=== PATIENT | female | born 1960 | race Caucasian/White ===

== ENCOUNTER 2016-07-21 09:03 | Outpatient (CLI) | payer BC, OTHER | END 2016-07-21 09:04 | disposition home or self-care (01) | DX: Z00.00 Encounter for general adult medical examination without abnormal findings (principal); E55.9 Vitamin D deficiency, unspecified; Z72.89 Other problems related to lifestyle; Z79.899 Other long term (current) drug therapy ==

== ENCOUNTER 2019-10-22 20:21 | Emergency (ER) | payer BC ==
--- NOTE | 2019-10-22 20:23 | ED Physician Documentation ---
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 denies taking any anticoagulants. She is a full code denies any other complaints. Review of Systems Constitutional: reports: Reviewed and negative Eyes: reports: Reviewed and negative Ears: reports: Reviewed and negative Nose: reports: Reviewed and negative Throat: reports: Reviewed and negative Cardiac: reports: Reviewed and negative Respiratory: reports: Reviewed and negative GI: reports: Nausea, Vomiting, Hematemesis, Bloody / black stool : reports: Reviewed and negative Skin: reports: Reviewed and negative Musculoskeletal: reports: Reviewed and negative Neurologic: reports: Reviewed and negative Psychiatric: reports: Reviewed and negative Endocrine: reports: Reviewed and negative Immunocompromised: reports: Reviewed and negative PD PAST MEDICAL HISTORY - Past Medical History GI: GERD - 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 - Allergies Allergies/Adverse Reactions: Allergies Allergy/AdvReac Type Severity Reaction Status Date / Time No Known Drug Allergies Allergy Verified 10/22/19 20:26 PD ED PE NORMAL - Vitals Vital signs reviewed: Yes - General General: Alert and oriented X 3, No acute distress - HEENT HEENT: PERRL - Neck Neck: Supple, no meningeal sign - Cardiac Cardiac: RRR, No murmur - Respiratory Respiratory: Clear bilaterally - Abdomen Abdomen: Normal bowel sounds, Soft, Non tender, Non distended, Other (ascites and hepatomegaly noted.) - Derm Derm: Warm and dry - Extremities Extremities: No deformity - Neuro Neuro: Alert and oriented X 3 - Psych Psych: Normal mood, Normal affect Results - Vitals Vitals: Vital Signs - 24 hr 10/22/19 10/22/19 10/22/19 20:26 21:00 22:00 Temperature 37.1 C Heart Rate 102 H 92 88 Respiratory 20 18 18 Rate Blood Pressure 98/54 L 101/66 98/65 O2 Saturation 100 99 100 10/22/19 10/22/19 10/23/19 23:06 23:30 00:05 Temperature 98.5 C H 37.0 C 98.9 C H Heart Rate 89 90 85 Respiratory 16 16 16 Rate Blood Pressure 102/61 99/65 100/70 O2 Saturation 10/23/19 00:55 Temperature Heart Rate 88 Respiratory 16 Rate Blood Pressure O2 Saturation 98 Oxygen O2 Source Room air - EKG (time done) 00:00 Rate: Other (no stemi) - Labs Labs: Laboratory Tests 10/22/19 10/22/19 10/22/19 21:10 21:10 21:10 WBC 18.4 H RBC 2.05 L Hgb 6.8 L* Hct 21.3 L MCV 103.9 H MCH 33.2 H MCHC 31.9 L RDW 22.2 H Plt Count 114 L MPV 10.8 Neut # (Auto) 15.2 H Lymph # (Auto) 1.4 L [place] # (Auto) 1.4 H Eos # (Auto) 0.1 Baso # (Auto) 0.0 Absolute Nucleated RBC 0.00 Band Neuts % (Manual) Not Reportable Abnorm Lymph % (Manual) Not Reportable Nucleated RBC % 0.0 Neutrophils # (Manual) Not Reportable Lymphocytes # (Manual) Not Reportable Monocytes # (Manual) Not Reportable Eosinophils # (Manual) Not Reportable Basophils # (Manual) Not Reportable Differential Comment MANUAL=AUTO DIFF Manual Slide Review Indicated WBC Morphology 1+ SMUDGE CELLS Platelet Estimate DECREASED (<130,000) Platelet Morphology NORMAL APPEARANCE RBC Morph Micro Appear 1+ BASO STIPPLING PT INR APTT Sodium 135 Potassium 2.8 L Chloride 103 Carbon Dioxide 24 Anion Gap 8.0 BUN 25 H Creatinine 0.4 Estimated GFR (MDRD) 164 Glucose 103 H Lactic Acid 1.1 Calcium 7.5 L Magnesium 1.3 L Total Bilirubin 0.6 Direct Bilirubin 0.2 AST 26 ALT 29 Alkaline Phosphatase 386 H Ammonia Total Creatine Kinase 14 L Total Protein 4.3 L Albumin 1.9 L Globulin 2.4 Lipase 19 L Urine Color Urine Clarity Urine pH Ur Specific [place] Urine Protein Urine Glucose (UA) Urine Ketones Urine Occult Blood Urine Nitrite Urine Bilirubin Urine Urobilinogen Ur Leukocyte Esterase Ur Microscopic Review Urine Culture Comments Blood Type Blood Type Recheck Antibody Screen Crossmatch IS Only 10/22/19 10/22/19 10/22/19 21:10 21:10 21:43 WBC RBC Hgb Hct MCV MCH MCHC RDW Plt Count MPV Neut # (Auto) Lymph # (Auto) [place] # (Auto) Eos # (Auto) Baso # (Auto) Absolute Nucleated RBC Band Neuts % (Manual) Abnorm Lymph % (Manual) Nucleated RBC % Neutrophils # (Manual) Lymphocytes # (Manual) Monocytes # (Manual) Eosinophils # (Manual) Basophils # (Manual) Differential Comment Manual Slide Review WBC Morphology Platelet Estimate Platelet Morphology RBC Morph Micro Appear PT INR APTT Sodium Potassium Chloride Carbon Dioxide Anion Gap BUN Creatinine Estimated GFR (MDRD) Glucose Lactic Acid Calcium Magnesium Total Bilirubin Direct Bilirubin AST ALT Alkaline Phosphatase Ammonia 27.9 Total Creatine Kinase Total Protein Albumin Globulin Lipase Urine Color Urine Clarity Urine pH Ur Specific [place] Urine Protein Urine Glucose (UA) Urine Ketones Urine Occult Blood Urine Nitrite Urine Bilirubin Urine Urobilinogen Ur Leukocyte Esterase Ur Microscopic Review Urine Culture Comments Blood Type O POSITIVE Blood Type Recheck O POSITIVE Antibody Screen NEGATIVE Crossmatch IS Only See Detail 10/22/19 10/22/19 22:23 22:55 WBC RBC Hgb Hct MCV MCH MCHC RDW Plt Count MPV Neut # (Auto) Lymph # (Auto) [place] # (Auto) Eos # (Auto) Baso # (Auto) Absolute Nucleated RBC Band Neuts % (Manual) Abnorm Lymph % (Manual) Nucleated RBC % Neutrophils # (Manual) Lymphocytes # (Manual) Monocytes # (Manual) Eosinophils # (Manual) Basophils # (Manual) Differential Comment Manual Slide Review WBC Morphology Platelet Estimate Platelet Morphology RBC Morph Micro Appear PT 15.7 H INR 1.4 H APTT 28.3 Sodium Potassium Chloride Carbon Dioxide Anion Gap BUN Creatinine Estimated GFR (MDRD) Glucose Lactic Acid Calcium Magnesium Total Bilirubin Direct Bilirubin AST ALT Alkaline Phosphatase Ammonia Total Creatine Kinase Total Protein Albumin Globulin Lipase Urine Color YELLOW Urine Clarity CLEAR Urine pH 5.5 Ur Specific [place] 1.020 Urine Protein NEGATIVE Urine Glucose (UA) NEGATIVE Urine Ketones NEGATIVE Urine Occult Blood NEGATIVE Urine Nitrite NEGATIVE Urine Bilirubin NEGATIVE Urine Urobilinogen 1 (NORMAL) Ur Leukocyte Esterase NEGATIVE Ur Microscopic Review NOT INDICATED Urine Culture Comments NOT INDICATED Blood Type Blood Type Recheck Antibody Screen Crossmatch IS Only PD MEDICAL DECISION MAKING - ED course Complexity details: considered differential (gi bleed. suspect esophageal variceal bleed given history of pancreatic cancer with metastatic disease to liver. patient not vomiting currently.) - Consults Consults: Discussed case with (dr. ferris hospitalist at [facility] who agreed to accept this patient. ) - Critical Care Time(min): 30 Time Includes: Direct patient care, Review records, Reassess patient, Document care, Coordinate care, Medical consult, Family consult for tx dec Data interpretation: Labs, CXR Procedures included in critical care time: Peripheral IV Procedures excluded from critical care time: EKG Departure - Departure Disposition: 02 Transfer Acute Care Hosp Clinical Impression: GI bleed Qualifiers: GI bleed type/associated pathology: unspecified gastrointestinal hemorrhage type Qualified Code(s): K92.2 - Gastrointestinal hemorrhage, unspecified Condition: Stable Discharge Date/Time: 10/23/19 02:27
[2019-10-22] MEDS ORDERED: PANTOPRAZOLE 40 MG VIAL IVP STA (20:42)
[2019-10-22] MEDS ORDERED: SODIUM CHLORIDE 0.9% 1,000 ML IV STA (20:42)
[2019-10-22] MEDS ORDERED: ONDANSETRON 4 MG/2 ML VIAL IVP STA (20:42)
[2019-10-22] MEDS ORDERED: cefTRIAXone 1 GM VIAL IVP STA (20:43)
[2019-10-22 21:18] LABS: BASOPHILS % (AUTO) 0.2 %; EOSINOPHILS # (AUTO) 0.1 10^3/uL (0.0-0.7); EOSINOPHILS % (AUTO) 0.3 %; LYMPHOCYTES # (AUTO) 1.4 10^3/uL (1.5-3.5); LYMPHOCYTES % (AUTO) 7.5 %; MEAN CORPUSCULAR HEMOGLOBIN 33.2 pg (27.0-31.0); MEAN CORPUSCULAR HGB CONC 31.9 g/dL (32.0-36.0); MEAN CORPUSCULAR VOLUME 103.9 fL (81.0-99.0); MEAN PLATELET VOLUME 10.8 fL (7.9-10.8); MONOCYTES # (AUTO) 1.4 10^3/uL (0.0-1.0); MONOCYTES % (AUTO) 7.8 %; NEUTROPHILS # (AUTO) 15.2 10^3/uL (1.5-6.6); NEUTROPHILS % (AUTO) 83.1 %; PLT - PLATELET COUNT 114 10^3/uL (130-450); RED BLOOD COUNT 2.05 10^6/uL (4.20-5.40); RED CELL DISTRIBUTION WIDTH 22.2 % (12.0-15.0); WHITE BLOOD COUNT 18.4 x10^3/uL (4.8-10.8)
[2019-10-22 21:24] LABS: HGB - HEMOGLOBIN 6.8 g/dL (12.0-16.0)
--- NOTE | 2019-10-22 21:31 | XRAY Report ---
PROCEDURE: Chest 1 View X-Ray INDICATIONS: hematemesis TECHNIQUE: One view of the chest was acquired. COMPARISON: None. FINDINGS: Surgical changes and devices: There is a right Port-A-Cath, the tip of which is projected over the ca voatrial junction. Lungs and pleura: There is left basilar atelectasis. There may be a small right pleural effusion. No pneumothorax. There is mild elevation of the right hemidiaphragm. Mediastinum: Mediastinal contours appear normal. Heart size is normal. Bones and chest wall: No suspicious bony lesions. Overlying soft tissues appear unremarkable. IMPRESSION: 1. Small right pleural effusion. 2. Left basilar atelectasis. Reviewed by: Kayla Medeiros MD on 10/22/2019 9:30 PM PDT Approved by: Kayla Medeiros MD on 10/22/2019 9:30 PM PDT Station ID: [id number]
[2019-10-22 21:33] LABS: ALBUMIN 1.9 g/dL (3.2-5.5); BILIRUBIN,DIRECT 0.2 mg/dL (0.1-0.5); BILIRUBIN,TOTAL 0.6 mg/dL (0.2-1.0); CALCIUM 7.5 mg/dL (8.5-10.3); CREATININE 0.4 mg/dL (0.4-1.0); MAGNESIUM 1.3 mg/dL (1.7-2.8); TOTAL PROTEIN 4.3 g/dL (6.7-8.2)
[2019-10-22 21:58] LABS: DIFFERENTIAL COMMENT MANUAL=AUTO DIFF; PLATELET ESTIMATE, MANUAL DECREASED (<130,000) (NORMAL); PLATELET MORPHOLOGY NORMAL APPEARANCE (NORMAL)
[2019-10-22 22:43] LABS: INR 1.4 (0.8-1.2); PT - PROTHROMBIN TIME 15.7 secs (9.9-12.6)
[2019-10-22 22:50] LABS: PARTIAL THROMBOPLASTIN TIME 28.3 secs (24.9-33.3)
[2019-10-22 23:06] LABS: BILIRUBIN,URINE NEGATIVE (NEGATIVE); GLUCOSE, URINE (UA) NEGATIVE (NEGATIVE); KETONES,URINE (UA) NEGATIVE (NEGATIVE); LEUKOCYTE ESTERASE, URINE NEGATIVE (NEGATIVE); NITRITE,URINE NEGATIVE (NEGATIVE); OCCULT BLOOD,URINE NEGATIVE (NEGATIVE); PH,URINE 5.5 PH (5.0-7.5); PROTEIN,URINE NEGATIVE (NEGATIVE); UROBILINOGEN,URINE 1 (NORMAL) E.U./dL (NORMAL)
[2019-10-22 23:08] LABS: CLARITY,URINE CLEAR (CLEAR)
[2019-10-23 01:47] VITALS: BP 100/70
== END 2019-10-23 02:27 | disposition short-term general hospital (02) ==
LOC: ED 20:21
DX: K92.0 Hematemesis (principal); C25.9 Malignant neoplasm of pancreas, unspecified; C78.7 Secondary malignant neoplasm of liver and intrahepatic bile duct; J90 Pleural effusion, not elsewhere classified; J98.11 Atelectasis; I45.81 Long QT syndrome; K86.81 Exocrine pancreatic insufficiency
CPT/HCPCS: 36430; 71045; 80048; 80076; 81003; 82140; 82550; 83605; 83690; 83735; 85025; 85610; 85730; 86850; 86900; 86901; 86920; 93005; 96361; 96374; 96375; 99291; P9016; 81001; 87086